=== PATIENT | male | born 1995 | race Caucasian/White ===

== ENCOUNTER 2018-10-16 08:28 | Emergency (ER) | payer SELFPAY, OTHER ==
[2018-10-16] MEDS: DIPHTH/TET/ACEL PERTUSS (ADULT) 0.5 ML VIAL IM* (09:21)
== END 2018-10-16 11:04 | disposition left against medical advice (07) ==
LOC: FTE 11:04
DX: Z23 Encounter for immunization (principal); W26.0XXA Contact with knife, initial encounter; Y92.9 Unspecified place or not applicable
CPT/HCPCS: 90471; 90715; 99283-25